=== PATIENT | female | born 1950 | race Two or more races ===

== ENCOUNTER 2022-12-07 12:33 | Observation (INO) | payer OTHER ==
[2022-12-07 12:52] LABS: Protime INR 0.97
[2022-12-07 12:53] LABS: Absolute Lymphocytes (CBC) 1.6 K/uL (0.7-4.9); Hematocrit 41.9 % (36.0-45.0); MCV 85.8 fL (80-100); MPV 7.6 fL (7.6-11.3); RBC Red Blood Cell Count 4.88 M/uL (3.86-4.86)
[2022-12-07] MEDS ORDERED: AMLODIPINE 10 MG TAB ONE (13:07)
[2022-12-07] MEDS ORDERED: LABETALOL HCL 100 MG TAB ONE (13:07)
--- NOTE | 2022-12-07 13:07 | RAD REPORT ---
EXAM DESCRIPTION: CT - Head Brain Wo Cont - 12/07/2022 12:52 pm CLINICAL HISTORY: Headache COMPARISON: None TECHNIQUE: Computed axial tomography of the head was obtained. IV contrast was not requested. All CT scans are performed using dose optimization technique as appropriate and may include automated exposure control or mA/KV adjustment according to patient size. FINDINGS: An intracranial bleed is not seen The ventricles are normal in caliber No extra-axial fluid collection is noted. Mild low-density areas within periventricular, deep and subcortical white matter likely represent isc hemic changes secondary to small vessel disease. Fluid within the sinuses/ mastoids is not seen. IMPRESSION: No acute intracranial abnormality is seen If patient's symptoms persist MRI of the brain would be recommended
[2022-12-07] MEDS ORDERED: LABETALOL 20 MG/4ML SYRINGE IV ONE (13:08)
[2022-12-07] MEDS ORDERED: NA CHLORIDE 0.9% 1,000 ML ONE (13:08)
[2022-12-07] MEDS ORDERED: LABETALOL HCL 100 MG/20 ML ONE (13:08)
--- NOTE | 2022-12-07 13:22 | RAD REPORT ---
EXAM DESCRIPTION: Mika Single View12/07/2022 1:01 pm CLINICAL HISTORY: Cough COMPARISON: none FINDINGS: The lungs appear clear of acute infiltrate. The heart is mildly enlarged. Aorta is tortuo us IMPRESSION: No acute abnormalities displayed
[2022-12-07 13:24] LABS: Albumin 4.1 g/dL (3.4-5.0); Bilirubin Direct 0.1 mg/dL (0-0.2); Bilirubin Indirect, Calculated 0.4 mg/dL (0.2-0.8); Bilirubin Total 0.5 mg/dL (0.2-1.0); Magnesium 2.6 mg/dL (1.6-2.4); Potassium 2.9 mEq/L (3.5-5.1); Protein, Total 8.5 g/dL (6.4-8.2); Thyroid Stimulating Hormone 1.73 uIU/mL (0.358-3.740); Troponin High Sensitivity 8.4 pg/mL (<58.9)
[2022-12-07 13:48] LABS: Specific Gravity < 1.005 (1.005-1.030); Urine Bacteria <20 /HPF (<20); Urine Bilirubin NEGATIVE (Negative); Urine Blood Negative (Negative); Urine Color Colorless (Yellow); Urine Glucose NEGATIVE (Negative); Urine Protein 1+ (Negative); Urine RBC <5 /HPF (None Seen); Urine Urobilinogen Normal (Normal); Urine pH 7.5 (5.0-7.0)
[2022-12-07 13:49] LABS: Urine Clarity Clear (Clear)
--- NOTE | 2022-12-07 14:37 | ER ---
Nurse's Notes [facility] Name: Lc Canales Age: 72 yrs Sex: Female : 1950 Arrival Date: 12/07/2022 Time: 12:33 Bed 5 Private MD: Diagnosis: Essential (primary) hypertension;Hypokalemia;Syncope Near;Proteinuria, unspecified Presentation: 12/07 12:39 Chief complaint: EMS states: Resolved dizziness/palpitations. Pt diagnosed with HTN nj1 back in the day, does not take any medications. Denies pain at this time. Coronavirus screen: Vaccine status: Patient reports receiving the 2nd dose of the covid vaccine. Ebola Screen: Patient denies travel to an Ebola-affected area in the 21 days before illness onset. Initial Sepsis Screen: Does the patient meet any 2 criteria? No. Patient's initial sepsis screen is negative. Does the patient have a suspected source of infection? No. Patient's initial sepsis screen is negative. Risk Assessment: Do you want to hurt yourself or someone else? Patient reports no desire to harm self or others. Onset of symptoms was December 07, 2022. 12:39 Method Of Arrival: EMS: [facility] 12:39 Acuity: SOURAV 2 nj1 Historical: - Allergies: 12:42 PENICILLINS; nj1 12:42 TETRACYCLINES; nj1 - Home Meds: 12:42 None [Active]; nj1 - PMHx: 12:42 Hypertensive disorder; nj1 - Immunization history:: Client reports receiving the 2nd dose of the Covid vaccine. - Social history:: Smoking status: Patient denies any tobacco usage or history of. Screenin:24 [facility] ED Fall Risk Assessment (Adult) History of falling in the last 3 months, nj1 including since admission No falls in past 3 months (0 pts) Confusion or Disorientation No (0 pts) Intoxicated or Sedated No (0 pts) Impaired Gait No (0 pts) Mobility Assist Device Used No (0 pt) Altered Elimination No (0 pt) Score/Fall Risk Level 0 - 2 = Low Risk Oriented to surroundings, Maintained a safe environment, Hourly rounding (assess needs \T\ fall precautionary measures) done. Abuse screen: Denies threats or abuse. Denies injuries from another. Nutritional screening: No deficits noted. Tuberculosis screening: No symptoms or risk factors identified. Assessment: 12:42 General: Appears in no apparent distress. comfortable, Behavior is calm, cooperative, nj1 appropriate for age. Pain: Denies pain. Neuro: Level of Consciousness is awake, alert, obeys commands, Oriented to person, place, time, situation. Neuro: Denies dizziness. Cardiovascular: Patient's skin is warm and dry. Rhythm is regular. Cardiovascular: Denies chest pain, palpitations, shortness of breath. Respiratory: Airway is patent Respiratory effort is even, unlabored. 13:00 Reassessment: Pt questioning medication orders. This RN provides education, charge nj1 nurse Tita in room providing education. Dr Neely at bedside answering questions. 15:15 Reassessment: Patient appears in no apparent distress at this time. Patient and/or nj1 family updated on plan of care and expected duration. Pain level reassessed. Patient is alert, oriented x 3, equal unlabored respirations, skin warm/dry/pink. Patient denies pain at this time. 16:38 Reassessment: Patient appears in no apparent distress at this time. Patient and/or nj1 family updated on plan of care and expected duration. Pain level reassessed. Patient is alert, oriented x 3, equal unlabored respirations, skin warm/dry/pink. 17:50 Reassessment: Patient appears in no apparent distress at this time. Patient and/or nj1 family updated on plan of care and expected duration. Pain level reassessed. Patient is alert, oriented x 3, equal unlabored respirations, skin warm/dry/pink. Patient denies pain at this time. 19:15 Reassessment: Patient appears in no apparent distress at this time. Patient and/or jb4 family updated on plan of care and expected duration. Pain level reassessed. Patient is alert, oriented x 3, equal unlabored respirations, skin warm/dry/pink. Vital Signs: 12:39 BP 242 / 137; Pulse 87; Resp 18; Temp 98.5(O); Pulse Ox 97% on R/A; Weight 61.23 kg; nj1 Height 5 ft. 6 in. ; Pain 0/10; 13:00 BP 235 / 139; Pulse 97; Resp 15; Pulse Ox 99% ; Pain 0/10; nj1 13:36 BP 196 / 112; Pulse 71; Resp 16; Pulse Ox 100% ; nj1 14:06 BP 178 / 89; Pulse 69; Resp 16; Pulse Ox 98% ; nj1 15:15 BP 139 / 74; Pulse 77; Resp 20; Pulse Ox 100% ; Pain 0/10; nj1 16:37 BP 166 / 98; Pulse 65; Resp 17; Pulse Ox 99% on R/A; nj1 17:49 BP 166 / 86; Pulse 68; Resp 17; Pulse Ox 98% ; nj1 19:15 BP 192 / 101; Pulse 72; Resp 16; Pulse Ox 98% on R/A; jb4 12:39 Body Mass Index 21.79 (61.23 kg, 167.64 cm) nj1 12:39 Pain Scale: Adult nj1 13:00 Pain Scale: Adult nj1 15:15 Pain Scale: Adult nj1 Angelique Coma Score: 14:25 Eye Response: spontaneous(4). Motor Response: obeys commands(6). Verbal Response: miguel angel oriented(5). Total: 15. NIH Stroke Scale Scores: 14:25 NIHSS Score: 0 miguel angel ED Course: 12:34 Patient arrived in ED. miguel angel 12:34 Juancarlos Neely MD is Attending Physician. miguel angel 12:39 Bel Benson, RN is Primary Nurse. nj1 12:42 Triage completed. nj1 12:42 Arm band placed on. nj1 12:45 Inserted saline lock: 20 gauge in right antecubital area, using aseptic technique. ll1 Blood collected. 12:54 CT Head Brain wo Cont In Process Unspecified. EDMS 13:03 XRAY Chest (1 view) In Process Unspecified. EDMS 13:24 Patient has correct armband on for positive identification. Bed in low position. Call [facility] light in reach. Side rails up X 1. Provided Education on: fall precautions. 14:32 Angelito Nguyen is Hospitalizing Provider. miguel angel 16:38 Inserted saline lock: 22 gauge in right hand, using aseptic technique. ds4 19:51 No provider procedures requiring assistance completed. Patient admitted, IV remains in rv place. Administered Medications: 13:06 Drug: Labetalol PO 200 mg Route: PO; nj1 18:08 Follow up: Response: No adverse reaction nj1 13:06 Drug: Norvasc PO 10 mg Route: PO; nj1 18:08 Follow up: Response: No adverse reaction nj1 13:07 Drug: Labetalol IV 10 mg Route: IV; Rate: per protocol; Site: right antecubital; nj1 18:09 Follow up: Response: No adverse reaction nj1 18:09 Follow up: IV Status: Completed infusion nj1 13:10 Drug: NS 0.9% IV 1000 ml Route: IV; Rate: 125 ml/hr; Site: right antecubital; nj1 19:51 Follow up: IV Status: Infusion continued upon admission rv 13:39 Drug: Labetalol IV 20 mg Route: IV; Rate: per protocol; Infused Over: 2 mins; [facility]; 18:08 Follow up: Response: No adverse reaction nj1 19:50 Follow up: Response: No adverse reaction; Blood pressure is lowered; IV Status: rv Completed infusion 15:15 Drug: Potassium Chloride IV 20 mEq Route: IV; Rate: per protocol; [address]; 18:07 Follow up: Response: No adverse reaction; IV Status: Completed infusion; IV Intake: nj1 100ml 15:17 Drug: Potassium PO Effervescent Tablet 50 mEq Route: PO; nj1 18:08 Follow up: Response: No adverse reaction nj1 18:05 Drug: Potassium Phosphate IV 15 mmol Route: IV; Rate: per protocol; [address]; 19:50 Follow up: IV Status: Infusion continued upon admission rv Medication: 19:51 VIS not applicable for this client. rv Intake: 18:07 IV: 100ml; Total: 100ml. nj1 Outcome: 14:37 Decision to Hospitalize by Provider. miguel angel 19:51 Admitted to Tele accompanied by tech, via wheelchair, room 414, with chart, Report rv called to brina bruno 19:51 Condition: improved 19:51 Instructed on the need for admit. 19:51 Patient left the ED. rv NIH Stroke Scale - NIH Stroke Score Date: 12/07/2022 Time: 14:25 Total Score = 0 10. Dysarthria (speech clarity - read or repeat words) - 0(Normal) 11. Extinction and Inattention (visual/tactile/auditory/spatial/personal) - 0(No abnormality) 1a. Level of Consciousness (LOC) - 0(Alert) 1b. Level of Consciousness (LOC) (Month \T\ Age) - 0(Both) 1c. LOC Commands (Open \T\ Closes Eyes/Mechanical Development Engineer) - 0(Both) 2. Best Gaze (Lateral Gaze Paresis) - 0(Normal) 3. Visual Field Loss - 0(No visual loss) 4. Facial Palsy - 0(Normal) 5a. Left Arm: Motor (10-second hold) - 0(No drift) 5b. Right Arm: Motor (10-second hold) - 0(No drift) 6a. Left Leg: Motor (5-second hold - always test supine) - 0(No drift) 6b. Right Leg: Motor (5-second hold - always test supine) - 0(No drift) 7. Limb Ataxia (finger/nose \T\ heel/ayala - test with eyes open) - 0(Absent) 8. Sensory Loss (pinprick arms/legs/face) - 0(Normal) 9. Best Language: Aphasia (description/naming/reading) - 0(No aphasia) Initials: miguel angel Signatures: Dispatcher [employer] EDJuancarlos Wilson MD MD cha Swanson, Donovan ds4 Mauricio Landa, RN RN jb4 Davie Ramirez RN RN rv Lewis, Lynsay, RN RN ll1 Bel Benson RN RN nj1 Corrections: (The following items were deleted from the chart) 12:42 12:42 Allergies: No Known Allergies; nj1 nj1 12:47 12:39 BP 242 / 137; Pulse 87bpm; Resp 18bpm; Pulse Ox 97% RA; 61.23 kg; Height nj1 5 ft. 6 in.; BMI: 21.7; Pain 0/10, Adult; nj1 15:29 15:15 Reassessment: Patient appears in no apparent distress at this time. nj1 Patient and/or family updated on plan of care and expected duration. Pain level reassessed. Patient is alert, oriented x 3, equal unlabored respirations, skin warm/dry/pink. nj1
--- NOTE | 2022-12-07 14:37 | EDPHYS ---
Physician Documentation [facility] Name: Lc Caanles Age: 72 yrs Sex: Female : 1950 Arrival Date: 12/07/2022 Time: 12:33 Bed 5 Private MD: ED Physician Juancarlos Neely HPI: 12/07 13:52 This 72 yrs old Female presents to ER via EMS with complaints of High Blood miguel angel Pressure. 13:52 The patient has elevated blood pressure and discovered this at home. Onset: The miguel angel symptoms/episode began/occurred just prior to arrival, this morning. Modifying factors: The symptoms are aggravated by activity, The symptoms are alleviated by remaining still. Associated signs and symptoms: Pertinent positives: headache, lightheadedness, weakness. Severity of symptoms: At its worst the blood pressure was moderate, in the emergency department the blood pressure is unchanged. The patient has not experienced similar symptoms in the past. Historical: - Allergies: 12:42 PENICILLINS; nj1 12:42 TETRACYCLINES; nj1 - Home Meds: 12:42 None [Active]; nj1 - PMHx: 12:42 Hypertensive disorder; nj1 - Immunization history:: Client reports receiving the 2nd dose of the Covid vaccine. - Social history:: Smoking status: Patient denies any tobacco usage or history of. ROS: 13:57 Constitutional: Negative for fever, chills, and weight loss, Eyes: Negative for injury, miguel angel pain, redness, and discharge, ENT: Negative for injury, pain, and discharge, Neck: Negative for injury, pain, and swelling, Cardiovascular: Negative for chest pain, palpitations, and edema, Respiratory: Negative for shortness of breath, cough, wheezing, and pleuritic chest pain, Abdomen/GI: Negative for abdominal pain, nausea, vomiting, diarrhea, and constipation, Back: Negative for injury and pain, : Negative for injury, bleeding, discharge, and swelling, MS/Extremity: Negative for injury and deformity, Skin: Negative for injury, rash, and discoloration, Psych: Negative for depression, anxiety, suicide ideation, homicidal ideation, and hallucinations, Allergy/Immunology: Negative for hives, rash, and allergies, Endocrine: Negative for neck swelling, polydipsia, polyuria, polyphagia, and marked weight changes, Hematologic/Lymphatic: Negative for swollen nodes, abnormal bleeding, and unusual bruising. Exam: 14:14 Abdomen/GI: Exam negative for Inspection: [facility] 14:14 Constitutional: This is a well developed, well nourished patient who is awake, alert, and in no acute distress. Head/Face: Normocephalic, atraumatic. Eyes: Pupils equal round and reactive to light, extra-ocular motions intact. Lids and lashes normal. Conjunctiva and sclera are non-icteric and not injected. Cornea within normal limits. Periorbital areas with no swelling, redness, or edema. ENT: Nares patent. No nasal discharge, no septal abnormalities noted. Tympanic membranes are normal and external auditory canals are clear. Oropharynx with no redness, swelling, or masses, exudates, or evidence of obstruction, uvula midline. Mucous membranes moist. Neck: Trachea midline, no thyromegaly or masses palpated, and no cervical lymphadenopathy. Supple, full range of motion without nuchal rigidity, or vertebral point tenderness. No Meningismus. Chest/axilla: Normal chest wall appearance and motion. Nontender with no deformity. No lesions are appreciated. Cardiovascular: Regular rate and rhythm with a normal S1 and S2. No gallops, murmurs, or rubs. Normal PMI, no JVD. No pulse deficits. Respiratory: Lungs have equal breath sounds bilaterally, clear to auscultation and percussion. No rales, rhonchi or wheezes noted. No increased work of breathing, no retractions or nasal flaring. Abdomen/GI: Soft, non-tender, with normal bowel sounds. No distension or tympany. No guarding or rebound. No evidence of tenderness throughout. Back: No spinal tenderness. No costovertebral tenderness. Full range of motion. Female : Normal external genitalia. Skin: Warm, dry with normal turgor. Normal color with no rashes, no lesions, and no evidence of cellulitis. MS/ Extremity: Pulses equal, no cyanosis. Neurovascular intact. Full, normal range of motion. Neuro: Awake and alert, GCS 15, oriented to person, place, time, and situation. Cranial nerves II-XII grossly intact. Motor strength 5/5 in all extremities. Sensory grossly intact. Cerebellar exam normal. Normal gait. Psych: Awake, alert, with orientation to person, place and time. Behavior, mood, and affect are within normal limits. 14:14 ECG was reviewed by the Attending Physician. 14:25 Musculoskeletal/extremity: DVT Exam: No signs of deep vein thrombosis. no pain, no miguel angel swelling, no tenderness, negative Homans' sign noted on exam, no appreciated bluish discoloration, no erythema, no increased warmth. 14:25 Neuro: Orientation: is normal, appropriate for stated age, no acute changes, Mentation: is normal, appropriate for stated age, no acute changes, Memory: is normal, appropriate for stated age, no acute changes, Cranial nerves: grossly normal, is grossly normal based on the patient's age, no acute changes, Cerebellar function: is grossly normal, is grossly normal based on the patient's age, no acute changes, Motor: is normal, is grossly normal based on the patient's age, no acute changes, moves all fours, strength is normal, Sensation: is normal, Gait: is steady, seizure activity, is not displayed by the patient. Vital Signs: 12:39 BP 242 / 137; Pulse 87; Resp 18; Temp 98.5(O); Pulse Ox 97% on R/A; Weight 61.23 kg; nj1 Height 5 ft. 6 in. ; Pain 0/10; 13:00 BP 235 / 139; Pulse 97; Resp 15; Pulse Ox 99% ; Pain 0/10; nj1 13:36 BP 196 / 112; Pulse 71; Resp 16; Pulse Ox 100% ; nj1 14:06 BP 178 / 89; Pulse 69; Resp 16; Pulse Ox 98% ; nj1 15:15 BP 139 / 74; Pulse 77; Resp 20; Pulse Ox 100% ; Pain 0/10; nj1 16:37 BP 166 / 98; Pulse 65; Resp 17; Pulse Ox 99% on R/A; nj1 17:49 BP 166 / 86; Pulse 68; Resp 17; Pulse Ox 98% ; nj1 19:15 BP 192 / 101; Pulse 72; Resp 16; Pulse Ox 98% on R/A; jb4 12:39 Body Mass Index 21.79 (61.23 kg, 167.64 cm) [facility] 12:39 Pain Scale: Adult nj 13:00 Pain Scale: Adult nj 15:15 Pain Scale: Adult [facility] NIH Stroke Scale Scores: 14:25 NIHSS Score: 0 miguel angel Angelique Coma Score: 14:25 Eye Response: spontaneous(4). Motor Response: obeys commands(6). Verbal Response: miguel angel oriented(5). Total: 15. MDM: 12:34 Patient medically screened. miguel angel 14:16 Differential diagnosis: hypertensive crisis, Malignant HTN, intracerebral hemorrhage. miguel angel Differential Diagnosis altered mental status. Differential Diagnosis: aortic aneurysm, cardiac arrhythmia, GI bleed, idiopathic syncope, pseudo seizure, seizure, vasovagal episode. Data reviewed: vital signs, nurses notes, lab test result(s), EKG, radiologic studies, CT scan, plain films. Consideration of Admission/Observation Escalation of care including admission/observation considered. I considered the following discharge prescriptions or medication management in the emergency department Medications were administered in the Emergency Department. See MAR. Test considered but Not performed: MRI: no mri brain. Care significantly affected by the following chronic conditions: Hypertension. Counseling: I had a detailed discussion with the patient and/or guardian regarding: the historical points, exam findings, and any diagnostic results supporting the discharge/admit diagnosis, the presence of at least one elevated blood pressure reading (>120/80) during this emergency department visit, lab results, radiology results, the need for further work-up and treatment in the hospital. 12/07 12:40 Order name: Basic Metabolic Panel; Complete Time: 13:37 [facility] 12/07 12:40 Order name: CBC with Diff; Complete Time: 13:18 [facility] 12/07 12:40 Order name: LFT's; Complete Time: 13:37 [facility] 12/07 12:40 Order name: Magnesium; Complete Time: 13:37 [facility] 12/07 12:40 Order name: NT PRO-BNP; Complete Time: 13:37 [facility] 12/07 12:40 Order name: PT-INR; Complete Time: 13:18 [facility] 12/07 12:40 Order name: Troponin HS; Complete Time: 13:37 [facility] 12/07 12:40 Order name: TSH; Complete Time: 13:37 [facility] 12/07 12:40 Order name: Urinalysis w/ reflexes; Complete Time: 14:16 [facility] 12/07 12:40 Order name: Lipase; Complete Time: 13:37 [facility] 12/07 13:44 Order name: Phosphorus; Complete Time: 15:27 [facility] 12/07 17:05 Order name: Hemoglobin A1c [facility] 12/07 17:05 Order name: Lipid Profile [facility] 12/07 17:05 Order name: Lipid Profile [facility] 12/07 17:10 Order name: Magnesium [facility] 12/07 17:10 Order name: Phosphorus [facility] 12/07 17:10 Order name: T4 Free [facility] 12/07 17:10 Order name: Thyroid Stimulating Hormone [facility] 12/07 17:10 Order name: Urinalysis w/ reflexes [facility] 12/07 17:10 Order name: Basic Metabolic Panel [facility] 12/07 17:10 Order name: Basic Metabolic Panel [facility] 12/07 17:10 Order name: CBC with Automated Diff [facility] 12/07 17:10 Order name: CBC with Automated Diff [facility] 12/07 12:40 Order name: XRAY Chest (1 view); Complete Time: 13:37 [facility] 12/07 12:40 Order name: CT Head Brain wo Cont; Complete Time: 13:18 [facility] 12/07 15:30 Order name: Echo w/ Doppler [facility] 12/07 17:05 Order name: Carotid Artery Bilateral [facility] 12/07 17:05 Order name: ERT ORTHOSTATIC V/S [facility] 12/07 17:05 Order name: ERT ORTHOSTATIC V/S [facility] 12/07 17:05 Order name: ERT ORTHOSTATIC V/S [facility] 12/07 17:05 Order name: ERT ORTHOSTATIC V/S [facility] 12/07 12:40 Order name: EKG; Complete Time: 12:41 [facility] 12/07 17:10 Order name: Regular; Complete Time: 18:07 [facility] 12/07 12:40 Order name: Cardiac monitoring; Complete Time: 12:45 [facility] 12/07 12:40 Order name: EKG - Nurse/Tech; Complete Time: 12:45 [facility] 12/07 12:40 Order name: IV Saline Lock; Complete Time: 12:45 [facility] 12/07 12:40 Order name: Labs collected and sent; Complete Time: 12:45 [facility] 12/07 12:40 Order name: O2 Per Protocol; Complete Time: 12:45 [facility] 12/07 12:40 Order name: O2 Sat Monitoring; Complete Time: 12:45 [facility] EC:14 Rate is 90 beats/min. Rhythm is regular. QRS [place] is Normal. MA interval is normal. QRS miguel angel interval is normal. QT interval is normal. No Q waves. T waves are Normal. No ST changes noted. Clinical impression: NSR w/ Non-specific ST/T Changes, 1st degree heart block, and LVH. Interpreted by me. Reviewed by me. Administered Medications: 13:06 Drug: Labetalol PO 200 mg Route: PO; [facility] 18:08 Follow up: Response: No adverse reaction nj 13:06 Drug: Norvasc PO 10 mg Route: PO; nj1 18:08 Follow up: Response: No adverse reaction nj 13:07 Drug: Labetalol IV 10 mg Route: IV; Rate: per protocol; [facility] 18:09 Follow up: Response: No adverse reaction nj1 18:09 Follow up: IV Status: Completed infusion nj 13:10 Drug: NS 0.9% IV 1000 ml Route: IV; Rate: 125 ml/hr; [facility] 19:51 Follow up: IV Status: Infusion continued upon admission rv 13:39 Drug: Labetalol IV 20 mg Route: IV; Rate: per protocol; Infused Over: 2 mins; Site: [facility] right [facility]; 18:08 Follow up: Response: No adverse reaction nj 19:50 Follow up: Response: No adverse reaction; Blood pressure is lowered; IV Status: rv Completed infusion 15:15 Drug: Potassium Chloride IV 20 mEq Route: IV; Rate: per protocol; Site: right [address]; 18:07 Follow up: Response: No adverse reaction; IV Status: Completed infusion; IV Intake: nj1 100ml 15:17 Drug: Potassium PO Effervescent Tablet 50 mEq Route: PO; nj1 18:08 Follow up: Response: No adverse reaction nj 18:05 Drug: Potassium Phosphate IV 15 mmol Route: IV; Rate: per protocol; Site: right [address]; 19:50 Follow up: IV Status: Infusion continued upon admission rv Disposition Summary: 12/07/22 14:37 Hospitalization Ordered Hospitalization Status: Observation miguel angel Provider: Angelito Nguyen cha Location: Telemetry/MedSurg (observation) miguel angel Condition: Fair miguel angel Problem: new miguel angel Symptoms: have improved miguel angel Bed/Room Type: Standard miguel angel Room Assignment: 414(12/07/22 18:40) bd Diagnosis - Essential (primary) hypertension miguel angel - Hypokalemia miguel angel - Syncope Near miguel angel - Proteinuria, unspecified miguel angel Forms: - Medication Reconciliation Form miguel angel - SBAR form miguel angel NIH Stroke Scale - NIH Stroke Score Date: 12/07/2022 Time: 14:25 Total Score = 0 10. Dysarthria (speech clarity - read or repeat words) - 0(Normal) 11. Extinction and Inattention (visual/tactile/auditory/spatial/personal) - 0(No abnormality) 1a. Level of Consciousness (LOC) - 0(Alert) 1b. Level of Consciousness (LOC) (Month \T\ Age) - 0(Both) 1c. LOC Commands (Open \T\ Closes Eyes/Die Maker Electronic) - 0(Both) 2. Best Gaze (Lateral Gaze Paresis) - 0(Normal) 3. Visual Field Loss - 0(No visual loss) 4. Facial Palsy - 0(Normal) 5a. Left Arm: Motor (10-second hold) - 0(No drift) 5b. Right Arm: Motor (10-second hold) - 0(No drift) 6a. Left Leg: Motor (5-second hold - always test supine) - 0(No drift) 6b. Right Leg: Motor (5-second hold - always test supine) - 0(No drift) 7. Limb Ataxia (finger/nose \T\ heel/ayala - test with eyes open) - 0(Absent) 8. Sensory Loss (pinprick arms/legs/face) - 0(Normal) 9. Best Language: Aphasia (description/naming/reading) - 0(No aphasia) Initials: miguel angel Signatures: Dispatcher [employer] EDMS Rossana Shipley Corey, MD MD cha Jaco, Norma RN RN [email or web address] Davie Ramirez RN rv Corrections: (The following items were deleted from the chart) 12:42 12:42 Allergies: No Known Allergies; [facility] nj1 18:40 14:37 miguel angel severino
[2022-12-07] MEDS ORDERED: POTASSIUM 25 MEQ EFFERV TAB ONE (15:15)
[2022-12-07] MEDS ORDERED: KCL 20 MEQ/100 mL IVPB 100 ML IV ONE (15:16)
[2022-12-07] MEDS ORDERED: TRAMADOL HCL 50 MG TAB PO PRN (16:58)
[2022-12-07] MEDS ORDERED: ACETAMINOPHEN 325 MG TABLET PO PRN (16:58)
[2022-12-07] MEDS ORDERED: ONDANSETRON 4 MG/2 ML VIAL IV PRN (17:08)
--- NOTE | 2022-12-07 17:09 | P.HP ---
Certification for Inpatient Patient admitted to: Observation With expected LOS: <2 Midnights Patient will require the following post-hospital care: None Practitioner: I am a practitioner with admitting privileges, knowledge of patient current condition, hospital course, and medical plan of care. Services: Services provided to patient in accordance with Admission requirements found in Title 42 Section 412.3 of the Code of Federal Regulations Patient History Date of Service: 12/07/22 Reason for admission: Dizziness and near syncope History of Present Illness: Patient is a 72-year-old female with a past medical history significant for hypertension and palpitations who presents with complaint of dizziness and near syncope onset this morning. Patient reports associated signs and symptoms of palpitation. Patient reported that she has been having ongoing palpitations for quite some time. Patient reported she has not been taking her blood pressure medicine due to how it makes her feel. Patient denies any other signs and symptoms. Symptoms are aggravated or relieved by nothing. Patient decided to present to the hospital due to worsening symptoms. - Past Medical/Surgical History -: HTN -: Palpitations -: Hysterectomy -: - Social History Smoking Status: Never smoker Alcohol use: No CD- Drugs: No Caffeine use: Yes Place of Residence: Home Review of Systems General: Unremarkable Eyes: Unremarkable ENT: Unremarkable Respiratory: Unremarkable Cardiovascular: Palpitations Gastrointestinal: Abdominal Pain Musculoskeletal: Unremarkable Integumentary: Unremarkable Neurological: Other (Dizziness, near syncope) Lymphatics: Unremarkable Physical Examination - Studies Laboratory Data (last 24 hrs) 12/07/22 12:43: Phosphorus 2.2 L 12/07/22 12:43: PT 10.7, INR 0.97 12/07/22 12:43: WBC 8.50, Hgb 13.7, Hct 41.9, Plt Count 300 12/07/22 12:43: Sodium 137, Potassium 2.9 L, BUN 16, Creatinine 1.08 H, Glucose 143 H, Magnesium 2.6 H, Total Bilirubin 0.5, AST 26, ALT 30, Alkaline Phosphatase 65, Lipase 45 Assessment and Plan - Plan --Near syncope\dizziness. Patient has a history of palpitation. Cardiology consulted. Echocardiogram pending to assess cardiac structures and function. Telemetry to monitor for any significant arrhythmia. Fall precautions. We will await further recommendation from artist's manager. -- Hypertension. Patient has not been compliant with home medication due to side effects. Continue home medications and hydralazine as needed. --Hypokalemia. Replete as needed. --CKD 3A. Baseline functions unknown. We will continue to monitor renal functions. --History of palpitation. Patient Admitting Representative on board. Echocardiogram pending. We will await further recommendation from artist's manager. --DVT prophylaxis with Lovenox subQ. Discharge Plan: Home Plan to discharge in: 48 Hours - Advance Directives Does patient have a Living Will: No Does patient have a Durable POA for Healthcare: No - Code Status/Comfort Care Code Status Assessed: Yes Physician Review: Patient Assessed, Agree with Above Assessment and Plan Critical Care: No
[2022-12-07] MEDS ORDERED: POTASSIUM PHOS IN 0.9 % NACL 15 MMOL/250 ML BAG IV ONE (17:15)
[2022-12-07] MEDS ORDERED: POTASS/SODIUM PHOSPHATE 1 PKT POWD.PACK PO ONE (20:00)
[2022-12-07 20:21] LABS: Magnesium 2.4 mg/dL (1.6-2.4); Phosphorus 3.2 mg/dL (2.5-4.9); Thyroid Stimulating Hormone 1.94 uIU/mL (0.358-3.740)
[2022-12-07] MEDS: ENOXAPARIN 40 MG/0.4 ML SQ SCH (21:49)
[2022-12-07 23:57] VITALS: BMI 21.7
[2022-12-08 05:45] LABS: Potassium 3.1 mEq/L (3.5-5.1)
[2022-12-08 05:49] LABS: Hematocrit 35.1 % (36.0-45.0); Lymphocytes % 32.7 % (15.3-44.8); MCV 86.4 fL (80-100); RBC Red Blood Cell Count 4.06 M/uL (3.86-4.86)
[2022-12-08] MEDS ORDERED: POTASSIUM CL SA 10 MEQ TAB PO ONE (08:05)
[2022-12-08] MEDS: ENOXAPARIN 40 MG/0.4 ML SQ SCH (09:05)
[2022-12-08] MEDS: ASPIRIN 81 MG CHEWABLE TABLET PO SCH (09:06)
[2022-12-08] MEDS: HYDRALAZINE HCL 20 MG/ML VIAL IV PRN ×2 (09:11→21:36)
--- NOTE | 2022-12-08 09:17 | RAD REPORT ---
EXAM DESCRIPTION: USCarotid Artery Bilateral12/07/2022 11:54 pm CLINICAL HISTORY: syncope COMPARISON: None FINDINGS: The velocity of the right internal carotid artery equals 74 cm/sec. The right ICA/CCA rati o normal The velocity of the left internal carotid artery equals 68 cm/sec. The left ICA/CCA ratio normal Mild plaque is present within the carotid arteries. The vertebral arteries demonstrate antegrade flow IMPRESSION: Mild plaque within the carotid arteries without evidence of a hemodynamically significan t stenosis NASCET criteria used. Mild 0-49% stenosis Moderate 50-69% stenosis Severe 70-99% stenosis
[2022-12-08] MEDS: DOXAZOSIN 2 MG TAB PO SCH (12:15)
--- NOTE | 2022-12-08 17:31 | P.PN ---
Subjective Date of Service: 12/08/22 Chief Complaint: Dizziness and near syncope Patient has no new complaint. She states that her dizziness has resolved. Blood pressure readings have improved. Physical Examination - Vital Signs Temperature: 97.3 F Blood Pressure: 166/80 Pulse: 77 Respirations: 16 Pulse Ox (%): 98 - Physical Exam General: Alert, In no apparent distress, Oriented x3 HEENT: Mucous membr. moist/pink Neck: JVD not distended Respiratory: Clear to auscultation bilaterally, Normal air movement Cardiovascular: No edema, Regular rate/rhythm, Normal S1 S2, No murmurs Gastrointestinal: Normal bowel sounds, Soft and benign, Non-distended, No tenderness Musculoskeletal: No swelling Integumentary: No rashes, No cyanosis Neurological: Normal strength at 5/5 x4 extr Lymphatics: No axilla or inguinal lymphadenopathy Assessment And Plan - Current Problems (Diagnosis) (1) Malignant hypertension Current Visit: Yes Status: Acute (2) Hyperlipidemia Current Visit: Yes Status: Acute - Plan Blood pressure readings are improving. Patient was started on amlodipine and doxazosin. She is nervous about medication side effect. She specifically mentioned she was on Benicar when it was recalled. She will benefit from ERNESTO inhibitor in addition to the vasodilators. Monitor blood pressure on amlodipine and doxazosin. Carotid Dopplers unremarkable Echocardiogram result is pending Patient started on high-dose statin for significantly elevated LDL and triglyceride. Patient counseled on low-fat diet and low-salt diet as well as compliance with medical treatment.
--- NOTE | 2022-12-08 19:18 | EKG ---
Test Date: 2022-12-07 Test Time: 12:36:08 Band Sawyer: AMRIT MEASUREMENT RESULTS: Intervals: Rate: 90 [place]: 218 QRSD: 86 QT: 366 QTc: 447 [place]: P: 39 [place]: 218 QRS: 31 T: 240 INTERPRETIVE STATEMENTS: Sinus rhythm with 1st degree AV block Marked ST abnormality, possible inferior subendocardial injury Abnormal ECG No previous ECG available for comparison Electronically Signed On 12-08-22 19:16:48 CDT by Ankush Urbano
[2022-12-08] MEDS ORDERED: ATORVASTATIN 40 MG TAB PO SCH (21:00)
[2022-12-08] MEDS: AMLODIPINE 10 MG TAB PO SCH (21:34)
[2022-12-08 22:53] LABS: Specific Gravity < 1.005 (1.005-1.030); Urine Bacteria <20 /HPF (<20); Urine Bilirubin NEGATIVE (Negative); Urine Blood Negative (Negative); Urine Clarity Clear (Clear); Urine Color Colorless (Yellow); Urine Crystals Unidentified Few /HPF (None Seen); Urine Glucose NEGATIVE (Negative); Urine Protein NEGATIVE (Negative); Urine RBC <5 /HPF (None Seen); Urine Urobilinogen Normal (Normal); Urine pH 6.5 (5.0-7.0)
[2022-12-09 02:21] VITALS: O2SAT 98
[2022-12-09] MEDS: HYDRALAZINE HCL 20 MG/ML VIAL IV PRN (05:42)
[2022-12-09 06:06] LABS: Potassium 3.2 mEq/L (3.5-5.1)
--- NOTE | 2022-12-09 08:47 | ECHO ---
HEIGHT: 5 ft 6 in WEIGHT: 134 lb 15.825 oz DATE OF STUDY: 12/08/[address]: Juancarlos Neely MD 2-DIMENSIONAL: YES M.MODE: YES DOPPLER: YES COLOR FLOW: YES TDS: PORTABLE: YES DEFINITY: BUBBLE STUDY: DIAGNOSIS: HYPERTENSION, CHEST PAIN CARDIAC HISTORY: CATHERIZATION: NO SURGERY: NO PROSTHETIC VALVE: NO PACEMAKER: NO MEASUREMENTS (cm) DIASTOLIC (NORMALS) SYSTOLIC (NORMALS) IVSd 1.0 (0.6-1.2) LA Diam 2.6 (1.9-4.0) LVEF 76% LVIDd 4.4 (3.5-5.7) LVIDs 2.4 (2.0-3.5) %FS 44% LVPWd 1.1 (0.6-1.2) Ao Diam 2.8 (2.0-3.7) 2 DIMENSIONAL ASSESSMENT: RIGHT ATRIUM: NORMAL LEFT ATRIUM: NORMAL RIGHT VENTRICLE: NORMAL LEFT VENTRICLE: NORMAL TRICUSPID VALVE: NORMAL MITRAL VALVE: MILD MITRAL REGURGITATION PULMONIC VALVE: NORMAL AORTIC VALVE: NORMAL PERICARDIAL EFFUSION: NONE AORTIC ROOT: NORMAL LEFT VENTRICULAR WALL MOTION: NORMAL (HYPERDYNAMIC) DOPPLER/COLOR FLOW: MILD MITRAL REGURGITATION COMMENTS: 1. NORMAL LEFT VENTRICULAR EJECTION FRACTION GREATER THAN 60% WITH NORMAL WALL MOTION 2. HYPERDYNAMIC LEFT VENTRICLE 3. NORMAL DIASTOLIC FUNCTION 4. MILD MITRAL REGURGITATION TECHNOLOGIST: MAGDA SMILEY
[2022-12-09] MEDS ORDERED: POTASSIUM CL SA 10 MEQ TAB PO ONE (09:00)
[2022-12-09] MEDS ORDERED: lisinopriL 20 MG TAB PO SCH (09:00)
[2022-12-09 09:12] VITALS: TEMP 97.7
[2022-12-09] MEDS: ENOXAPARIN 40 MG/0.4 ML SQ SCH (09:12)
[2022-12-09] MEDS: HYDRALAZINE HCL 25 MG TABLET PO SCH ×2 (09:13→14:27)
[2022-12-09] MEDS: ASPIRIN 81 MG CHEWABLE TABLET PO SCH (09:13)
[2022-12-09] MEDS: AMLODIPINE 10 MG TAB PO SCH (09:13)
[2022-12-09] MEDS: DOXAZOSIN 2 MG TAB PO SCH (09:13)
--- NOTE | 2022-12-09 10:15 | RAD REPORT ---
EXAM DESCRIPTION: CT - Abdomen Angio - 12/09/2022 10:00 am CLINICAL HISTORY: Chest pain radiating to the back. Malignant hypertension COMPARISON: Pelvis Angio dated 12/09/2022 TECHNIQUE: CT angiography of the abdomen and pelvis was performed with MIPs. All CT scans are performed using dose optimization technique as appropriate and may include automated exposure control or mA/KV adjustment according to patient size. FINDINGS: Abdominal aorta shows no evidence of significant flow abnormality.No acute aortic finding is seen such as aneurysm, penetrating ulcer or dissection. The celiac axis, SMA, TIARRA are patent. Mil d calcified ostial plaquing is seen involving both renal arteries, slightly greater on the left. Both common iliac arteries are normal without flow abnormality. No significant stenosis or flow abnor mality of of internal or external iliac arteries. The lower lung skinner are clear. Small cyst is seen in the left lobe of the liver. The spleen, pancreas, adrenal glands and kidneys are within the hands.No adrenal masses evident. No bowel obstruction, free fluid or abscess.No pathologic enlarged lymphadenopathy identified. Moderate multilevel lower lumbar degenerative changes are present. IMPRESSION: Mild ostial narrowing of both renal arteries, caused by hard plaque, slightly greater on the left without a significant stenosis suspected. Elsewhere, there is no significant flow abnormality detected.
--- NOTE | 2022-12-09 11:55 | P.DS ---
Admission Date: 12/07/22 Discharge Date: 12/09/22 Disposition: ROUTINE DISCHARGE Discharge Condition: FAIR Reason for Admission: Dizziness and near syncope - Problems (1) Malignant hypertension Status: Acute (2) Hyperlipidemia Status: Acute Brief History of Present Illness: Patient is a 72-year-old female with a past medical history significant for hypertension and palpitations who presented with complaint of dizziness and near syncope onset this morning. Patient reported palpitation. Patient reported that she has been having ongoing palpitations for quite some time. Patient reported she has not been taking her blood pressure medicine due to how it makes her feel. She states that she almost passed out. Systolic blood pressure noted to be severe elevated up to 240 on presentation. EKG demonstrated Sinus rhythm with 1st degree AV block, marked ST abnormality, possible inferior subendocardial injury. Patient was hospitalized for further management. . Hospital Course: Patient placed under observation on the medical floor and aggressively treated for hypertension. She was started on amlodipine and doxazosin. CTA abdomen/pelvis did not show any significant renal artery stenosis. Echocardiogram did not show any wall motion abnormality but did demonstrate hyperdynamic left ventricle. Blood pressure readings improved with treatment. Patient also started on lisinopril. Carotid Dopplers unremarkable Patient started on high-dose statin for significantly elevated LDL and triglyceride. Patient counseled on low-fat diet and low-salt diet as well as compliance with medical treatment. She has been informed to monitor her blood pressure daily and maintain a log. Patient was seen and evaluated by cardiology-Dr. Urbano. Patient counseled on compliance with medications. She is informed to follow-up with Dr. Tejeda for repeat blood pressure follow- up within a couple of weeks. Vital Signs/Physical Exam: Temp Pulse Resp BP Pulse Ox 97.7 F 99 H 18 174/82 H 97 12/09/22 08:00 12/09/22 08:00 12/09/22 08:00 12/09/22 08:00 12/09/22 08:00 General: Alert, In no apparent distress, Oriented x3 HEENT: Mucous membr. moist/pink Neck: Supple, JVD not distended Respiratory: Clear to auscultation bilaterally, Normal air movement Cardiovascular: No edema, Regular rate/rhythm, Normal S1 S2 Gastrointestinal: Normal bowel sounds, Soft and benign, Non-distended, No tenderness Musculoskeletal: No swelling, No tenderness Integumentary: No rashes, No cyanosis Neurological: Normal speech, Normal strength at 5/5 x4 extr Laboratory Data at Discharge: WBC 6.10 thou/uL (4.3-10.9) 12/08/22 04:48 Hgb 11.7 g/dL (12.0-15.0) L D 12/08/22 04:48 Hct 35.1 % (36.0-45.0) L 12/08/22 04:48 Plt Count 260 thou/uL (152-406) 12/08/22 04:48 PT 10.7 SECONDS (9.5-12.5) 12/07/22 12:43 INR 0.97 12/07/22 12:43 Sodium 139 mEq/L (136-145) 12/09/22 05:13 Potassium 3.2 mEq/L (3.5-5.1) L 12/09/22 05:13 BUN 16 mg/dL (7-18) 12/09/22 05:13 Creatinine 0.96 mg/dL (0.55-1.02) 12/09/22 05:13 Glucose 176 mg/dL (74-106) H 12/09/22 05:13 Phosphorus 3.2 mg/dL (2.5-4.9) 12/07/22 19:45 Magnesium 2.4 mg/dL (1.6-2.4) 12/07/22 19:45 Total Bilirubin 0.5 mg/dL (0.2-1.0) 12/07/22 12:43 AST 26 U/L (15-37) 12/07/22 12:43 ALT 30 U/L (13-56) 12/07/22 12:43 Alkaline Phosphatase 65 U/L (45-117) 12/07/22 12:43 Triglycerides 248 mg/dL (<150) H 12/08/22 04:48 Cholesterol 268 mg/dL (<200) H 12/08/22 04:48 HDL Cholesterol 56 mg/dL (40-60) 12/08/22 04:48 Cholesterol/HDL Ratio 4.79 12/08/22 04:48 Lipase 45 U/L (13-75) 12/07/22 12:43 Home Medications: Bromelains [Bromelain] 1 dose PO DAILY 12/07/22 Potassium Chloride 1 cap PO DAILY 12/07/22 Magnesium Oxide [Mag 0X*] 1 tab PO DAILY 12/08/22 Amlodipine [Norvasc*] 10 mg PO DAILY #30 tab 12/09/22 Aspirin Chewable [Aspirin Chewable*] 81 mg PO DAILY #30 tab.chew 12/09/22 Atorvastatin Calcium [Lipitor] 40 mg PO BEDTIME #30 tab 12/09/22 Doxazosin [Cardura*] 2 mg PO BEDTIME #30 tab 12/09/22 lisinopriL [Prinivil*] 20 mg PO DAILY #30 tab 12/09/22 New Medications: Aspirin Chewable [Aspirin Chewable*] 81 mg PO DAILY #30 tab.chew Doxazosin [Cardura*] 2 mg PO BEDTIME #30 tab Atorvastatin Calcium [Lipitor] 40 mg PO BEDTIME #30 tab Amlodipine [Norvasc*] 10 mg PO DAILY #30 tab lisinopriL [Prinivil*] 20 mg PO DAILY #30 tab Diet: AHA Activity: Ad bess Followup: DEBORAH CABRERA [Primary Care Provider] - Alex Tejeda DO [ACTIVE - CAN ADMIT] - (Within 2 weeks) Time spent managing pt's care (in minutes): 32
--- NOTE | 2022-12-09 15:39 | RAD REPORT ---
EXAM DESCRIPTION: CT - Pelvis Angio - 12/09/2022 10:00 am CLINICAL HISTORY: Chest pain radiating to the back. Malignant hypertension COMPARISON: Pelvis Angio dated 12/09/2022 TECHNIQUE: CT angiography of the abdomen and pelvis was performed with MIPs. All CT scans are performed using dose optimization technique as appropriate and may include automated exposure control or mA/KV adjustment according to patient size. FINDINGS: Abdominal aorta shows no evidence of significant flow abnormality. No acute aortic finding is seen such as aneurysm, penetrating ulcer or dissection. The celiac axis, SMA, TIARRA are patent. Mil d calcified ostial plaquing is seen involving both renal arteries, slightly greater on the left. Both common iliac arteries are normal without flow abnormality. No significant stenosis or flow abnor mality of of internal or external iliac arteries. The lower lung skinner are clear. Small cyst is seen in the left lobe of the liver. The spleen, pancreas, adrenal glands and kidneys are within the hands. No adrenal masses evident. No bowel obstruction, free fluid or abscess. No pathologic enlarged lymphadenopathy identified. Moderate multilevel lower lumbar degenerative changes are present. IMPRESSION: Mild ostial narrowing of both renal arteries, caused by hard plaque, slightly greater on the left without a significant stenosis suspected. Elsewhere, there is no significant flow abnormality detected.
[2022-12-09 16:01] VITALS: BP 160/75
--- NOTE | 2022-12-10 00:18 | PN ---
Date of Progress Note: 12/09/2022 Subjective: Seen by bedside. She feels normal. Denies any chest pain, shortness of breath, or dizz iness. Review of Systems: All other systems reviewed are negative. Physical Examination: Vital signs: Reviewed. Head and Neck: Pupils are equal, reactive to light. Intact eye movements. No JVD. No cervical lym phadenopathy. Neck is supple. Thyroid is not enlarged. Lungs: Clear to auscultation bilaterally. No rhonchi, wheezing, or crackles. No accessory muscle use. Heart: Regular rate and rhythm. No extra sounds. Abdomen: Soft, nontender. Bowel sounds positive. No organomegaly. No masses or hernia. No rigidi ty or rebound. Extremities: No edema, clubbing, cyanosis. Intact pulses. Skin: No rash. No nodules. Neurologic: Alert, awake, oriented x3. No acute focal deficits appreciated. Lymph Nodes: No cervical or axillary lymphadenopathy. Investigations: BUN is 16, creatinine 0.96, potassium 3.2. LDL cholesterol 162, and hemoglobin is 1 1.7. Assessment/recommendation: 1.Near syncope and dizziness. Etiology is not clear; however, on echo the LV was hyperdynamic, so c ould be slight dehydration, however, blood pressure is good. No arrhythmias were recorded. Patient needs stress test due to multiple risk factors including severe dyslipidemia. Recommend to do this a s an outpatient. From Cardiology standpoint, no further workup is needed as an inpatient and she can be released to follow up as an outpatient. 2.Hypertension. Blood pressure is elevated. Resume home medications. 3.Dyslipidemia, severe. Recommend Lipitor 40 mg q.h.s. SR/MODL Voice ID: [id number] Report ID: [id number]
--- NOTE | 2022-12-10 00:42 | CON ---
Date of Consultation: 12/08/2022 Reason For Consultation: Dizziness and near syncope. History Of Present Illness: 72-year-old female with history of hypertension and palpitation, who pre sented to the emergency room with dizziness and near syncope. She apparently does routine with exerc ise and swimming. It was her day of swimming and in the morning, she got ready to go to swim. She f elt very lightheaded but did not pass out but felt faint like in the standing position. Denies havin g any chest pain. No palpitations. No other complaints. Past Medical History: Hypertension. Past Surgical History: Hysterectomy and . Medications: Refer reconciliation sheet for detailed list. Allergies: TETRACYCLINE AND PENICILLIN. Family History: No premature coronary artery disease or cancer. Social History: She does not smoke or drink. Does not use any drugs. Review of Systems: All systems were reviewed, they were negative except as mentioned in HPI. Physical Examination: Vital Signs: Reviewed. Head and Neck: Pupils are equal, reactive to light. Intact eye movements. No JVD. No cervical lym phadenopathy. Neck is supple. Thyroid is not enlarged. Lungs: Clear to auscultation bilaterally. No rhonchi, wheezing, or crackles. No accessory muscle u se. Heart: Regular rate and rhythm. No extra sounds. Abdomen: Soft, nontender. Bowel sounds positive. No organomegaly. No masses or hernia. No rigidi ty or rebound. Extremities: No edema, clubbing, cyanosis. Intact pulses. Skin: No rash. Neurologic: Alert, awake, and oriented x3. No acute focal deficits appreciated. Investigations: BUN is 13, creatinine 0.94, potassium 3.1, and LDL cholesterol is 162. Troponin is negative. EKG without acute specific abnormalities. Assessment And Recommendation: 1.Syncope, etiology is not clear. Admit, obtain an echocardiogram, do serial sets of cardiac enzyme s, and monitor on telemetry. 2.Abnormal EKG with diffuse ST changes. No chest pain. Never had any cardiac issue. The patient w ill need a stress test, which can be arranged for as an outpatient. 3.Hypertension: Continue current management. 4.Dyslipidemia. Continue statin. SR/MODL Voice ID: [id number] Report ID: [id number]
== END 2022-12-09 16:05 | disposition home or self-care (01) ==
LOC: ER 12:33 → ERHOLD 16:57 → 4TH 19:15
PROVIDERS: ADMIT Internal Medicine; ATTEND Internal Medicine
DX: R55 Syncope and collapse (principal); I12.9 Hypertensive chronic kidney disease with stage 1 through stage 4 chronic kidney disease, or unspecified chronic kidney disease; N18.31 Chronic kidney disease, stage 3a; E87.6 Hypokalemia; E78.5 Hyperlipidemia, unspecified; R94.31 Abnormal electrocardiogram [ECG] [EKG]; Z88.0 Allergy status to penicillin; Z88.1 Allergy status to other antibiotic agents; Z79.899 Other long term (current) drug therapy; Z91.148 Patient's other noncompliance with medication regimen for other reason
CPT/HCPCS: 36415; 70450; 71045; 72191; 74175; 80048; 80061; 80076; 81001; 83036; 83690; 83735; 83880; 84100; 84132; 84439; 84443; 84484; 85025; 85610; 93005; 93306; 93880; 96365; 96366; 96367; 99285; J0360; J1650; J3480; J7030; Q9967